=== PATIENT | male | born 1975 | race Two or more races ===

== ENCOUNTER 2018-02-24 09:19 | Emergency (ER) | payer MEDICAID ==
[~2018-02-24] VITALS: Ht 175.3 cm; Wt 115.2 kg
[2018-02-24 10:25] LABS: Basophils # (auto) 0.1 uL; Hemoglobin 19.1 g/dL (13.5-17.5); Monocytes # (auto) 0.6 uL; Neutrophils # (auto) 4.7 uL
[2018-02-24 10:28] LABS: Basophils % (auto) 0.8 % (0.0-2.0); Eosinophils # (auto) 0.2 uL; Lymphocytes # (auto) 2.3 uL; Mean Corpuscular Hemoglobin 30.1 pg (28.0-32.0); Mean Corpuscular Hgb Conc. 34.7 g/dL (32.0-36.0); Monocytes % (auto) 7.2 % (0.0-12.0); Platelet Count (auto) 357 10^3/uL (140-450); Red Cell Distribution Width 13.5 % (11.8-14.3); White Blood Cell 7.8 10^3/uL (4.4-10.8)
[2018-02-24 10:33] LABS: Hematocrit 54.4 % (41.0-53.0); Red Blood Cells 6.28 10^6/uL (4.5-5.90)
[2018-02-24 10:54] LABS: Alanine Aminotransferase 47 U/L (16-61); Albumin 4.3 g/dL (3.4-5.0); Alkaline Phosphatase 65 U/L (45-117); Anion Gap 9 (5-15); Aspartate Aminotransferase 20 U/L (15-37); BUN/Creatinine Ratio 10.3; Bilirubin, Total 0.4 mg/dL (0.2-1.0); Blood Urea Nitrogen 11 mg/dL (7-18); Calcium 9.3 mg/dL (8.5-10.1); Carbon Dioxide 27 mmol/L (21-32); Chloride 102 mmol/L (98-107); GFR African American 98 mL/min; GFR Non-African American 81 mL/min; Glucose 101 mg/dL (74-106); Potassium 4.3 mmol/L (3.5-5.1); Sodium 138 mmol/L (136-145); Total Protein 8.3 g/dL (6.4-8.2)
[2018-02-24 12:23] LABS: Urine Bacteria NONE SEEN /hpf (None Seen); Urine Blood TRACE /uL (Negative); Urine Specific Gravity 1.009 (1.001-1.035); Urine WBC <1 /hpf (0 - 3)
[2018-02-24] MEDS ORDERED: KETOROLAC TROMETH 60MG/2ML VIAL IM ONE (12:30)
[2018-02-24] MEDS ORDERED: cloNIDine HCL 0.1 MG TAB PO ONE (12:30)
[2018-02-24 13:45] VITALS: BP 127/80
== END 2018-02-24 13:54 | disposition home or self-care (01) ==
LOC: ER 09:19
DX: I10 Essential (primary) hypertension (principal)
CPT/HCPCS: 36415; 70450; 80053; 81001; 84484; 85025; 93005; 96372; 99285; J1885

== ENCOUNTER 2018-03-04 06:28 | Emergency (ER) | payer MEDICAID ==
[~2018-03-04] VITALS: Ht 170.2 cm; Wt 106.6 kg
[2018-03-04] MEDS ORDERED: SUMAtriptan SUCCINATE 6 MG/0.5 ML VL SC ONE ×2 (07:00→08:45)
[2018-03-04 07:14] LABS: Basophils # (auto) 0.1 uL; Eosinophils # (auto) 0 uL; Hemoglobin 18.1 g/dL (13.5-17.5); Monocytes # (auto) 0.6 uL; Monocytes % (auto) 3.9 % (0.0-12.0)
[2018-03-04 07:15] LABS: Basophils % (auto) 0.5 % (0.0-2.0); Hematocrit 51.6 % (41.0-53.0); Lymphocytes # (auto) 1.3 uL; Lymphocytes % (auto) 7.8 % (10.0-50.0); Mean Corpuscular Hemoglobin 30.4 pg (28.0-32.0); Neutrophils # (auto) 14.5 uL; Neutrophils % (auto) 87.8 % (37.0-80.0); Nucleated Red Blood Cells % 0.1 %; Platelet Count (auto) 408 10^3/uL (140-450); Red Blood Cells 5.93 10^6/uL (4.5-5.90); Red Cell Distribution Width 13.3 % (11.8-14.3); White Blood Cell 16.6 10^3/uL (4.4-10.8)
[2018-03-04] MEDS ORDERED: SODIUM CHLORIDE 0.9% 1,000 ML IV ONE ×2 (07:47)
[2018-03-04] MEDS ORDERED: cefTRIAXone 1GM/10ml IVPUSH 10 ML IV ONE (08:00)
[2018-03-04 08:31] LABS: Albumin 4.5 g/dL (3.4-5.0); BUN/Creatinine Ratio 10.6; Bilirubin, Total 0.6 mg/dL (0.2-1.0); Calcium 9.7 mg/dL (8.5-10.1); Potassium 4.1 mmol/L (3.5-5.1); Total Protein 8.8 g/dL (6.4-8.2)
[2018-03-04 11:04] VITALS: BP 133/85
== END 2018-03-04 11:33 | disposition home or self-care (01) ==
LOC: ER 06:28
DX: J32.9 Chronic sinusitis, unspecified (principal); R11.2 Nausea with vomiting, unspecified; I10 Essential (primary) hypertension
CPT/HCPCS: 36415; 70450; 80053; 85025; 96361; 96372; 96374; 99285; J3030; J7030